=== PATIENT | female | born 1960 | race Caucasian/White ===

== ENCOUNTER 2018-12-19 12:53 | Emergency (ER) | payer MEDICAID ==
--- NOTE | 2018-12-19 14:33 | ER Document Report ---
ED Medical Screen (RME) - General Chief Complaint: Psych Problem Stated Complaint: SUICIDAL IDEATION Time Seen by Provider: 12/19/18 14:28 Mode of Arrival: Ambulatory Information source: Patient Notes: 58-year-old female with a reported history of bipolar schizophrenia presents with chief complaint of "I am losing it". Patient states that she has not had any of her psychiatric medication since October. Adult Protective Services is involved in her family service caseworker is Suzy Weiss phone #[phone]. She states that her auditory hallucinations are telling her to overdose. Patient has had prior similar symptoms and previous attempts. I have greeted and performed a rapid initial assessment of this patient. A comprehensive ED assessment and evaluation of the patient, analysis of test re sults and completion of medical decision making process we will be contacted by additional ED providers. PHYSICAL EXAMINATION: Vital signs reviewed GENERAL: Well-appearing, well-nourished and in no acute distress. LUNGS: No respiratory distress Musculoskeletal: Normal range of motion NEUROLOGICAL: Normal speech, normal gait. PSYCH: Tearful, anxious SKIN: Warm, Dry, normal turgor, no rashes or lesions noted. TRAVEL OUTSIDE OF THE U.S. IN LAST 30 DAYS: No - HPI Onset: Other Similar symptoms previously: Yes Recently seen / treated by doctor: No - Related Data Smoking: Cigarettes Frequency of alcohol use: None Drug Abuse: None Allergies/Adverse Reactions: No Known Allergies Allergy (Verified 12/19/18 12:53) Physical Exam - Vital signs Vitals: Temp Pulse Resp BP Pulse Ox 98.3 F 84 16 168/96 H 94 12/19/18 13:28 12/19/18 13:28 12/19/18 13:28 12/19/18 13:28 12/19/18 13:28 Course - Vital Signs Vital signs: Temp Pulse Resp BP Pulse Ox 98.3 F 84 16 168/96 H 94 12/19/18 13:28 12/19/18 13:28 12/19/18 13:28 12/19/18 13:28 12/19/18 13:28
[2018-12-19 15:09] LABS: ABSOLUTE BASOPHILS # (AUTO) 0.1 10^3/uL (0.0-0.2); ABSOLUTE EOSINOPHILS # (AUTO) 0.1 10^3/uL (0.0-0.6); ABSOLUTE LYMPHOCYTES (AUTO) 2.9 10^3/uL (0.5-4.7); ABSOLUTE MONOCYTES (AUTO) 0.6 10^3/uL (0.1-1.4); BASOPHILS % (AUTO) 0.7 % (0-2); EOSINOPHILS % (AUTO) 0.9 % (0-6); HEMATOCRIT 46.1 % (36.0-47.0); LYMPHOCYTES % (AUTO) 30.1 % (13-45); MEAN CORPUSCULAR HEMOGLOBIN 30.3 pg (27.0-33.4); MEAN CORPUSCULAR HGB CONC 34.6 g/dL (32.0-36.0); MEAN CORPUSCULAR VOLUME 88 fl (80-97); MONOCYTES % (AUTO) 6.3 % (3-13); PLATELET COUNT 238 10^3/uL (150-450); RED BLOOD COUNT 5.26 10^6/uL (3.72-5.28); RED CELL DISTRIBUTION WIDTH 13.6 % (11.5-14.0); TOTAL CELLS COUNTED % (AUTO) 100 %; WHITE BLOOD COUNT 9.7 10^3/uL (4.0-10.5)
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
[2018-12-19 15:12] LABS: APPEARANCE,URINE SLIGHTLY-CLOUDY; BILIRUBIN,URINE NEGATIVE (NEGATIVE); COLOR,URINE YELLOW; GLUCOSE, URINE NEGATIVE (NEGATIVE); KETONES,URINE NEGATIVE (NEGATIVE); LEUKOCYTE ESTERASE,URINE NEGATIVE (NEGATIVE); NITRITE,URINE NEGATIVE (NEGATIVE); PROTEIN,URINE NEGATIVE (NEGATIVE); URINE SPECIFIC GRAVITY 1.016; UROBILINOGEN,URINE NEGATIVE mg/dL (<2.0)
[2018-12-19 15:36] LABS: ALANINE AMINOTRANSFERASE 12 U/L (9-52); ALBUMIN 4.5 g/dL (3.5-5.0); ALKALINE PHOSPHATASE 93 U/L (38-126); ANION GAP 11 (5-19); ASPARTATE AMINO TRANSFERASE 19 U/L (14-36); BILIRUBIN,DIRECT 0.3 mg/dL (0.0-0.4); BILIRUBIN,TOTAL 0.5 mg/dL (0.2-1.3); BLOOD UREA NITROGEN 9 mg/dL (7-20); CALCIUM 10.2 mg/dL (8.4-10.2); CARBON DIOXIDE 26 mmol/L (22-30); CHLORIDE 101 mmol/L (98-107); GLUCOSE 103 mg/dL (75-110); POTASSIUM 4.2 mmol/L (3.6-5.0); SODIUM 137.5 mmol/L (137-145); TOTAL PROTEIN 7.3 g/dL (6.3-8.2)
[2018-12-19 15:37] LABS: ACETAMINOPHEN < 10 ug/mL (10-30); ALCOHOL < 10 mg/dL (NONE DETECTED); SALICYLATE < 1.0 mg/dL (2.0-20.0)
[2018-12-19 15:38] LABS: URINE AMPHETAMINES SCREEN NEGATIVE; URINE BARBITURATES SCREEN NEGATIVE; URINE BENZODIAZEPINES SCREEN NEGATIVE; URINE COCAINE SCREEN NEGATIVE; URINE MARIJUANA (THC) SCREEN NEGATIVE; URINE METHADONE SCREEN NEGATIVE; URINE PHENCYCLIDINE SCREEN NEGATIVE
--- NOTE | 2018-12-19 15:58 | EKG REPORT ---
SEVERITY:- BORDERLINE ECG - SINUS RHYTHM NONSPECIFIC ST-T CHANGES ANTERIOR LEADS. : Confirmed by: Yogi Baumann MD 19-Dec-2018 15:58:15
--- NOTE | 2018-12-19 16:27 | PSYCHOLOGICAL NOTE ---
Psych Note - Psych Note Date seen by psych provider: 12/19/18 Time seen by psych provider: 03:00 Psych Note: Reason for consult:SI, HI, AV/H Contact Permissions: ARTHUR Cuenca Patient is a 58 yo female presenting to the ED with [facility] MCS and reported command hallucinations and SI. Chart review shows no prior psych visits. Patient reports her sister sent her here from [place] to live with her son because she wasn't happy with her MH care in [facility]. Patient has moved in with her son in the home of her ex-. ARTHUR is involved with this patient and came out to check in and was concerned about the condition of the home so her ex- evicted her today. She says "he yells at me all the time and says I'm exaggerating about being bipolar and schizophrenic but he's an alcoholic". She complains he never took her to get Medicaid or start mental health care "like he was supposed to". She is "losing it/thinking about killing myself by OD/I need housing but I need to get my head back on first". Patient reports she works at [employer] and is on a wait list for an available home in [facility]. [facility] but [facility] and doesn't want to go to the homeless fci. She reports one prior suicide attempt in [place] in her youth by walking in front of a bus. She explains she was on too much medication at the time and the prescriber was investigated and no longer licensed due to this incident and others. She reports one accidental OD "I slightly did because I grabbed the wrong pill in the dark". She denies drug or alcohol use and her labs support this. She asks for something "to relax me". APS, Suzy Weiss reports patient has been known "to make a mountain out of a mole hill". The home she says, "needs work but nothing life threatening". Patient was provided with information to contact to get housing and mental health services and told to contact [facility] because she has no PCP or MH provider at this time. She will come to the ED and assist patient in transitioning to the fci. Patient is alert and oriented x 4. Mood is labile with congruent affect aeb tearful, agitated, eythymic. Patient endorses passive SI by OD, HI, and AV/H, does not appear to be responding to internal stimuli, and no delusions were noted. Conversational speech was WNL for rate, tone, and prosody. Eye contact was well maintained. Thought processes were linear, organized, and rational. Intellectual abilities were estimated within the average range. Attention/concentration was WNL while, insight, judgment, and impulse control were poor. Diagnosis: Bipolar Disorder, per patient report Schizophrenia, per patient report R/O Cluster B Traits Medication recommendations as per psychiatric provider, Dr. Rene are as follows: No medication recommendations at this time Impression/Plan: Patient is psychiatrically clear from acute psychiatric services as there is no risk of harm to self or others aeb while patient endorses SI and AV/H, she is future-focused on securing housing and pain medication for her legs, her thoughts are linear and organized with good eye contact and concentration all of which indicate she is not distracted or distressed by AV/H. Patient is recommended to discharge to home/self-care with follow up mental health comprehensive clinical assessment and treatment. Patient is a 58 yo female from [place] with self-reported schizophrenia and bipolar disorder who's presentat ion of sx's is more consistent with a personality disorder. Further, patient has not followed up with housing and MH as recommended by DSS and has found herself without housing or medication. [facility] secured a bed at the fci for her and assisted patient in making an appointment with [facility] for a mental health assessment to determine an accurate diagnosis to inform treatment. Patient was made aware of MCS and verbalized acceptance of fci and resources given. Consulted Dr. Hoang in the care and treatment of this patient and ED physician who is in agreement with disposition and recommendation.
[2018-12-19 16:37] VITALS: BP 165/85
== END 2018-12-19 16:46 | disposition home or self-care (01) ==
LOC: ER 12:53
DX: R45.851 Suicidal ideations (principal); R45.850 Homicidal ideations; F20.9 Schizophrenia, unspecified; F31.9 Bipolar disorder, unspecified; F17.200 Nicotine dependence, unspecified, uncomplicated; Z59.0 Homelessness; Z63.8 Other specified problems related to primary support group
CPT/HCPCS: 36415; 80053; 80307; 81001; 85025; 93005; 93010; 99285

== ENCOUNTER 2018-12-26 23:43 | Emergency (ER) | payer MEDICAID ==
[2018-12-27] MEDS ORDERED: HYDROCODONE/ACETAMINOPHEN 5-325 MG TABLET PO ONE (00:01)
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
[2018-12-27 01:02] LABS: ANION GAP 6 (5-19); BLOOD UREA NITROGEN 16 mg/dL (7-20); CALCIUM 9.6 mg/dL (8.4-10.2); CARBON DIOXIDE 29 mmol/L (22-30); CHLORIDE 105 mmol/L (98-107); CREATINE KINASE 121 U/L (30-135); GLUCOSE 101 mg/dL (75-110); POTASSIUM 3.8 mmol/L (3.6-5.0); SODIUM 139.5 mmol/L (137-145)
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
[2018-12-27 02:43] VITALS: BP 153/92
== END 2018-12-27 02:35 | disposition home or self-care (01) ==
LOC: ER 23:43
DX: M79.605 Pain in left leg (principal); M79.604 Pain in right leg; M79.10 Myalgia, unspecified site; M54.9 Dorsalgia, unspecified; E78.00 Pure hypercholesterolemia, unspecified; I10 Essential (primary) hypertension; F17.200 Nicotine dependence, unspecified, uncomplicated; Z59.0 Homelessness
CPT/HCPCS: 36415; 80048; 82550; 99284